=== PATIENT | male | born 1960 | race Caucasian/White ===

== ENCOUNTER 2021-08-03 10:53 | Emergency (ER) | payer BC ==
[~2021-08-03] VITALS: Ht 172.7 cm; Wt 108.6 kg
[2021-08-03 12:13] LABS: BASO # 0.02 K/mm3 (0.02-0.10); EOS # 0.01 K/mm3 (0.04-0.40); EOS % 0.2 % (0.0-4.0); HEMATOCRIT 49.5 % (42.0-52.0); HEMOGLOBIN 16.5 g/dL (13.5-18.0); LYMPH# 0.98 K/mm3 (1.50-4.00); MEAN CELL VOLUME 92 fl (78-100); MEAN CORPUSCULAR HEMOGLOBIN 31 pg (27-31); MEAN CORPUSCULAR HGB CONC 33 g/dL (33-37); MEAN PLATELET VOLUME 10.1 fl (7.4-10.4); MONO # 0.41 K/mm3 (0.20-0.80); NEU # 2.76 K/mm3 (1.40-6.50); PLATELET COUNT 189 K/mm3 (130-400); RED BLOOD COUNT 5.38 M/mm3 (4.20-5.60); RED CELL DISTRIBUTION WIDTH 13.3 % (11.5-14.5); WHITE BLOOD COUNT 4.2 K/mm3 (4.8-10.8)
[2021-08-03 12:25] LABS: ALBUMIN 4.1 g/dL (3.5-5.0); POTASSIUM 3.2 mmol/L (3.5-5.1)
[2021-08-03 12:26] LABS: CALCIUM 8.7 mg/dL (8.3-10.5)
[2021-08-03 12:27] LABS: TOTAL PROTEIN 7.3 g/dL (6.4-8.3)
[2021-08-03 12:29] LABS: TOTAL BILIRUBIN 0.3 mg/dL (0.2-1.2)
[2021-08-03 12:42] LABS: TROPONIN-I 0.03 ng/mL (<0.030)
[2021-08-03 12:49] LABS: D-DIMER 0.48 mg/L FEU (0.15-0.50)
[2021-08-03] MEDS ORDERED: MORGIDOX 1X100100 MG PO (15:34)
[2021-08-03] MEDS ORDERED: DECADRON6 M1 PO (15:34)
[2021-08-03] MEDS ORDERED: RT ALBUTEROL CC18 GM IH (15:34)
[2021-08-03 16:00] VITALS: BP 148/77
== END 2021-08-03 16:00 | disposition home or self-care (01) ==
LOC: ED 10:53
PROVIDERS: Nurse Practitioner
DX: U07.1 COVID-19 (principal); J12.82 Pneumonia due to coronavirus disease 2019; E66.9 Obesity, unspecified; Z68.36 Body mass index [BMI] 36.0-36.9, adult
CPT/HCPCS: J3480; Q0247

== ENCOUNTER → 2021-09-07 | Outpatient (CLI) | payer OTHER ==
[~2021-09-07] MED LIST: DECADRON6 M1 PO; MORGIDOX 1X100100 MG PO; RT ALBUTEROL CC18 GM IH
[2021-09-07 12:47] LABS: BASO # 0.07 K/mm3 (0.02-0.10); EOS # 0.16 K/mm3 (0.04-0.40); EOS % 1.8 % (0.0-4.0); HEMOGLOBIN 15.7 g/dL (13.5-18.0); LYMPH# 1.77 K/mm3 (1.50-4.00); MEAN CELL VOLUME 91 fl (78-100); MEAN CORPUSCULAR HEMOGLOBIN 30 pg (27-31); MEAN CORPUSCULAR HGB CONC 33 g/dL (33-37); MEAN PLATELET VOLUME 9.5 fl (7.4-10.4); NEU # 6.06 K/mm3 (1.40-6.50); PLATELET COUNT 353 K/mm3 (130-400); RED BLOOD COUNT 5.19 M/mm3 (4.20-5.60); RED CELL DISTRIBUTION WIDTH 12.9 % (11.5-14.5); WHITE BLOOD COUNT 8.8 K/mm3 (4.8-10.8)
[2021-09-07 12:51] LABS: ALBUMIN 4.3 g/dL (3.5-5.0); POTASSIUM 3.5 mmol/L (3.5-5.1)
[2021-09-07 12:52] LABS: CALCIUM 9.5 mg/dL (8.3-10.5)
[2021-09-07 12:53] LABS: TOTAL PROTEIN 7.7 g/dL (6.4-8.3)
[2021-09-07 12:55] LABS: TOTAL BILIRUBIN 0.5 mg/dL (0.2-1.2)
[2021-09-07 13:00] LABS: MAGNESIUM 1.91 mg/dL (1.60-2.60)
== END ==
LOC: LAB 12:29
PROVIDERS: Internal Medicine
DX: Z00.00 Encounter for general adult medical examination without abnormal findings (principal); Z12.5 Encounter for screening for malignant neoplasm of prostate; Z12.11 Encounter for screening for malignant neoplasm of colon

== ENCOUNTER → 2022-01-28 | Day surgery (SDC) | payer OTHER | LOC: MSO 08:31 | DX: K57.30 Diverticulosis of large intestine without perforation or abscess without bleeding (principal); K31.9 Disease of stomach and duodenum, unspecified | CPT/HCPCS: 00813; J2704; J7120 ==

== ENCOUNTER 2022-07-04 09:12 | Emergency (ER) | payer OTHER ==
[2022-07-04 10:02] LABS: BASO # 0.06 K/mm3 (0.02-0.10); EOS # 0.31 K/mm3 (0.04-0.40); EOS % 3.7 % (0.0-4.0); HEMATOCRIT 48.1 % (42.0-52.0); HEMOGLOBIN 16.2 g/dL (13.5-18.0); LYMPH# 2.15 K/mm3 (1.50-4.00); MEAN CELL VOLUME 89 fl (78-100); MEAN CORPUSCULAR HEMOGLOBIN 30 pg (27-31); MEAN CORPUSCULAR HGB CONC 34 g/dL (33-37); MEAN PLATELET VOLUME 9.7 fl (7.4-10.4); MONO # 0.81 K/mm3 (0.20-0.80); NEU # 5.03 K/mm3 (1.40-6.50); PLATELET COUNT 253 K/mm3 (130-400); RED BLOOD COUNT 5.42 M/mm3 (4.20-5.60); WHITE BLOOD COUNT 8.4 K/mm3 (4.8-10.8)
[2022-07-04 10:22] LABS: PARTIAL THROMBOPLASTIN TIME 23.6 SECONDS (21.0-32.0); PROTHROMBIN TIME 10.3 SECONDS (9.0-12.0)
[2022-07-04 10:24] LABS: ALBUMIN 4.3 g/dL (3.5-5.0)
[2022-07-04 10:25] LABS: POTASSIUM 3.4 mmol/L (3.5-5.1); SODIUM 141 mmol/L (136-145)
[2022-07-04 10:26] LABS: CALCIUM 9.3 mg/dL (8.3-10.5)
[2022-07-04 10:27] LABS: GLUCOSE 97 mg/dL (75-110); TOTAL PROTEIN 7.5 g/dL (6.4-8.3)
[2022-07-04 10:28] LABS: CARBON DIOXIDE 24 mmol/L (22-29)
[2022-07-04 10:29] LABS: TOTAL BILIRUBIN 0.4 mg/dL (0.2-1.2)
[2022-07-04 10:32] LABS: AST-SGOT 36 U/L (5-34)
[2022-07-04 10:33] LABS: ALT/SGPT 62 U/L (0-55)
[2022-07-04 10:42] LABS: TROPONIN-I < 0.030 ng/mL (<0.030)
[2022-07-04 15:19] LABS: D-DIMER 0.41 mg/L FEU (0.15-0.50)
[2022-07-04 15:29] LABS: URINE APPEARANCE CLEAR; URINE BILIRUBIN NEGATIVE (NEGATIVE); URINE BLOOD NEGATIVE (NEGATIVE); URINE COLOR YELLOW; URINE GLUCOSE NEGATIVE (NEGATIVE); URINE KETONE NEGATIVE (NEGATIVE); URINE LEUKOCYTE ESTERASE NEGATIVE (NEGATIVE); URINE MUCUS PRESENT (NOT PRESENT); URINE NITRATE NEGATIVE (NEGATIVE); URINE PROTEIN(semi-quant) TRACE (NEGATIVE); URINE UROBILINOGEN NORMAL (NORMAL); URINE WBC 0-1 /hpf (0-3)
[2022-07-04] MEDS ORDERED: XANAX0.5 M1 PO (15:34)
[2022-07-04 17:23] VITALS: BP 168/101
== END 2022-07-04 15:53 | disposition home or self-care (01) ==
LOC: ED 09:12
PROVIDERS: Family Medicine; Nurse Practitioner
DX: R07.89 Other chest pain (principal); F41.9 Anxiety disorder, unspecified; E66.9 Obesity, unspecified; Z28.310 Unvaccinated for COVID-19; Z86.16 Personal history of COVID-19